=== PATIENT | female | born 1955 ===

== ENCOUNTER → 2016-05-15 | Outpatient (CLI) | payer BC ==
--- NOTE | 2016-05-17 09:02 | MM ---
Reason for exam: screening (asymptomatic). Last mammogram was performed 1 year and 3 months ago. History: Patient is postmenopausal and had first child at age 29. Family history of breast cancer in maternal aunt and breast cancer in maternal grandmother. Taking estrogen for 5 years beginning at age 55. Taking progesterone for 5 years beginning at age 55. Physical Findings: A clinical breast exam by your physician is recommended on an annual basis and results should be correlated with mammographic findings. MG 3D Screening Mammo W/Cad Bilateral CC and MLO view(s) were taken. Prior study comparison: February 24, 2015, bilateral MG screening mammo w CAD. February 18, 2014, bilateral MG screening mammo w CAD. The breast tissue is heterogeneously dense. This may lower the sensitivity of mammography. No significant changes when compared with prior studies. ASSESSMENT: Benign, BI-RAD 2 RECOMMENDATION: Routine screening mammogram of both breasts in 1 year.
== END ==
LOC: RADMAMWWP 13:55
PROVIDERS: ATTEND Obstetrics & Gynecology
DX: Z12.31 Encounter for screening mammogram for malignant neoplasm of breast (principal)
CPT/HCPCS: 77063; G0202

== ENCOUNTER → 2017-06-07 | Outpatient (CLI) | payer BC ==
--- NOTE | 2017-06-11 07:58 | MM ---
Reason for exam: screening (asymptomatic). Last mammogram was performed 1 year and 1 month ago. History: Patient is postmenopausal and had first child at age 29. Family history of breast cancer in maternal aunt and breast cancer in maternal grandmother. Taking estrogen for 5 years beginning at age 55. Taking progesterone for 5 years beginning at age 55. Physical Findings: A clinical breast exam by your physician is recommended on an annual basis and results should be correlated with mammographic findings. MG 3D Screening Mammo W/Cad Bilateral CC and MLO view(s) were taken. Prior study comparison: May 15, 2016, bilateral MG 3d screening mammo w/cad. February 24, 2015, bilateral MG screening mammo w CAD. The breast tissue is heterogeneously dense. This may lower the sensitivity of mammography. No significant changes when compared with prior studies. ASSESSMENT: Benign, BI-RAD 2 RECOMMENDATION: Routine screening mammogram of both breasts in 1 year.
== END | disposition home or self-care (01) ==
LOC: RADMAMWWP 12:49
PROVIDERS: ATTEND Obstetrics & Gynecology
DX: Z12.31 Encounter for screening mammogram for malignant neoplasm of breast (principal)
CPT/HCPCS: 77063; 77067

== ENCOUNTER → 2018-03-25 | Outpatient (CLI) | payer BC ==
--- NOTE | 2018-03-25 16:54 | BD ---
EXAMINATION TYPE: Axial Bone Density DATE OF EXAM: 03/25/2018 COMPARISON: 2014 CLINICAL HISTORY: osteopenia Height: 5'4 1/2 Weight: 128 FRAX RISK QUESTIONS: History of Fracture in Adulthood: y Secondary Osteoporosis: RISK FACTORS HISTORY OF: Postmenopausal woman: y Take estrogen and/or progesterone medications: y How lon-10-years MEDICATIONS: Additional Medications: asthma Additional History: EXAM MEASUREMENTS: Bone mineral densitometry was performed using the [employer] System. Bone mineral density as measured about the Lumbar spine is: ----- L1-L4(G/cm2): 1.180 T Score Values are as follows: ----- L2: -2.2 ----- L3:0.8 ----- L4: 1.9 ----- L1-L4: 0.0 Bone mineral density has: Increased 8.1% since study of: 02/24/2015 Bone mineral density about the R hip (g/cm2): 0.0738 Bone mineral density about the L hip (g/cm2): 0.749 T Score values are as follows: -----R Neck: -2.2 -----L Neck: -2.1 -----R Total: -1.5 -----L Total: -1.3 Bone mineral density has: Decreased -6.1% since study of: 02/24/2015 IMPRESSION: Osteopenia (T Score between -2.5 and -1). There is slightly increased risk of fracture and the patient may be considered for treatment. Re-Screen 2-5 years. NOTE: T-SCORE=SD OF THE YOUNG ADULT MEAN.
== END ==
LOC: RADBDWWP 09:09
PROVIDERS: ATTEND Obstetrics & Gynecology
DX: M85.80 Other specified disorders of bone density and structure, unspecified site (principal)
CPT/HCPCS: 77080

== ENCOUNTER → 2019-01-21 | Outpatient (CLI) | payer BC, MEDICARE ==
--- NOTE | 2019-01-23 14:48 | MM ---
Reason for exam: screening (asymptomatic). Last mammogram was performed 1 year and 7 months ago. History: Patient is postmenopausal and had first child at age 29. Family history of breast cancer in maternal aunt and breast cancer in maternal grandmother. Taking estrogen for 5 years beginning at age 55. Taking progesterone for 5 years beginning at age 55. Physical Findings: A clinical breast exam by your physician is recommended on an annual basis and results should be correlated with mammographic findings. MG 3D Screening Mammo W/Cad Bilateral CC and MLO view(s) were taken. Prior study comparison: June 07, 2017, bilateral MG 3d screening mammo w/cad. May 15, 2016, bilateral MG 3d screening mammo w/cad. The breast tissue is heterogeneously dense. This may lower the sensitivity of mammography. No suspicious abnormality. Chronic right inferior nipple skin retraction, unchanged on MLO from 2014. No significant changes when compared with prior studies. ASSESSMENT: Benign, BI-RAD 2 RECOMMENDATION: Routine screening mammogram of both breasts in 1 year.
== END | disposition home or self-care (01) ==
LOC: RADMAMWWP 09:38
PROVIDERS: ATTEND Obstetrics & Gynecology
DX: Z12.31 Encounter for screening mammogram for malignant neoplasm of breast (principal)
CPT/HCPCS: 77063; 77067

== ENCOUNTER → 2020-02-12 | Outpatient (CLI) | payer MEDICARE ==
--- NOTE | 2020-02-16 08:04 | MM ---
Reason for exam: screening (asymptomatic). Last mammogram was performed 1 year and 1 month ago. History: Patient is postmenopausal and had first child at age 29. Family history of breast cancer in maternal aunt and breast cancer in maternal grandmother. Taking estrogen for 5 years beginning at age 55. Taking progesterone for 5 years beginning at age 55. Physical Findings: A clinical breast exam by your physician is recommended on an annual basis and results should be correlated with mammographic findings. MG 3D Screening Mammo W/Cad Bilateral CC and MLO view(s) were taken. Prior study comparison: January 21, 2019, bilateral MG 3d screening mammo w/cad. June 07, 2017, bilateral MG 3d screening mammo w/cad. The breast tissue is heterogeneously dense. This may lower the sensitivity of mammography. Asymmetric breast tissue right inferior breast, stable. There is no discrete abnormality. ASSESSMENT: Negative, BI-RAD 1 RECOMMENDATION: Routine screening mammogram of both breasts in 1 year. Some consider ultrasound surveillance in patients with benign dense tissue.
== END | disposition home or self-care (01) ==
LOC: RADMAMWWP 09:38
PROVIDERS: ATTEND Student in an Organized Health Care Education/Training Program
DX: Z12.31 Encounter for screening mammogram for malignant neoplasm of breast (principal)
CPT/HCPCS: 77063; 77067

== ENCOUNTER → 2021-01-14 | Outpatient (CLI) | payer MEDICARE ==
--- NOTE | 2021-01-14 08:19 | CT ---
EXAMINATION TYPE: CT brain wo con DATE OF EXAM: 01/14/2021 HISTORY: headaches for [address] DLP: 982.2 mGycm. Automated Exposure Control for Dose Reduction was Utilized. TECHNIQUE: CT scan of the head is performed without contrast. COMPARISON: Sinus CT July 14, 2019. FINDINGS: There is no acute intracranial hemorrhage or midline shift identified. There is mild sulc al prominence consistent with mild bilateral frontal lobe atrophy. No hydrocephalus. Castillo-white bart er differentiation is maintained. Some prominence of the pituitary gland for patient's age but measur es within normal limits. Suprasellar cistern is not effaced. The globes are intact and the visualized sinuses remain clear. IMPRESSION: Symmetric mild diffuse bilateral frontal lobe atrophy. No acute findings are evident.
== END | disposition home or self-care (01) ==
LOC: RADCTMAIN 07:56
PROVIDERS: ATTEND Family Medicine
DX: G31.9 Degenerative disease of nervous system, unspecified (principal)
CPT/HCPCS: 70450

== ENCOUNTER → 2021-03-09 | Outpatient (CLI) | payer MEDICARE ==
--- NOTE | 2021-03-14 11:38 | MM ---
Reason for exam: screening (asymptomatic). Last mammogram was performed 1 year and 1 month ago. History: Patient is postmenopausal and had first child at age 29. Family history of breast cancer in maternal aunt and breast cancer in maternal grandmother. Taking estrogen for 5 years beginning at age 55. Taking progesterone for 5 years beginning at age 55. Physical Findings: A clinical breast exam by your physician is recommended on an annual basis and results should be correlated with mammographic findings. MG 3D Screening Mammo W/Cad Bilateral CC and MLO view(s) were taken. Prior study comparison: February 12, 2020, bilateral MG 3d screening mammo w/cad. January 21, 2019, bilateral MG 3d screening mammo w/cad. The breast tissue is extremely dense which could obscure a lesion on mammography. There are benign appearing round calcifications bilaterally. There is no discrete abnormality. ASSESSMENT: Benign, BI-RAD 2 RECOMMENDATION: Routine screening mammogram of both breasts in 1 year.
== END | disposition home or self-care (01) ==
LOC: RADMAMWWP 16:31
PROVIDERS: ATTEND Student in an Organized Health Care Education/Training Program
DX: Z12.31 Encounter for screening mammogram for malignant neoplasm of breast (principal)
CPT/HCPCS: 77063; 77067

== ENCOUNTER → 2021-06-09 | Outpatient (CLI) | payer MEDICARE ==
[2021-06-09 15:41] LABS: African American GFR (CKD) 67.5 (60.0-200.0); BUN/Creat Ratio 18.8 Ratio (12.00-20.00); Blood Urea Nitrogen 18.8 mg/dL (9.0-27.0); Calcium 9.8 mg/dL (8.7-10.3); Non-African American GFR(CKD) 58.2 (60.0-200.0); Potassium 4.4 mmol/L (3.5-5.5)
== END | disposition home or self-care (01) ==
LOC: LABWHC1 10:19
PROVIDERS: ATTEND Otolaryngology
DX: E87.8 Other disorders of electrolyte and fluid balance, not elsewhere classified (principal)
CPT/HCPCS: 36415; 80048

== ENCOUNTER → 2021-06-21 | Outpatient (CLI) | payer MEDICARE ==
--- NOTE | 2021-06-21 12:05 | MR ---
EXAMINATION TYPE: MR brain and iac wo/w con DATE OF EXAM: 06/21/2021 COMPARISON: CT brain 01/14/2021 HISTORY: Left ear pain, pressure, and hearing loss. Meniere's disease TECHNIQUE: Multiplanar, multisequence images of the brain and brainstem is performed with small [id number] an d high resolution images through the internal auditory canals without and with IV contrast, utilizing 6 mL intravenous Gadavist . FINDINGS: Diffusion weighted images demonstrate no evidence of a recent infarct or other diffusion ab normality. There is no extra-axial fluid collection or significant white matter signal abnormality, possibly 3-5 hyperintensities are present in the left subcortical white matter, axial image 27, right frontal deep white matter, axial image 24, external capsule on the right axial image 17 and inversio n recovery T2-weighted sequences. The ventricular system and cisternal spaces are normal in size and appearance. The brain volume is age appropriate. Cerebellopontine angles show no mass. There is no abnormality of the internal auditory canals to sugg est acoustic neuroma. No coronal images were performed for measurements of saccule and utricle. Midline structures demonstrate normal morphology. The craniocervical junction appears within normal limits. Post contrast images demonstrate no abnormal enhancement. The dural venous sinuses appear pa tent. The visualized sinuses are remarkable for mucosal disease in the ethmoid air cells, and the adriana bes are intact. There is some fluid signal in the mastoid air cells on the left. IMPRESSION: No evident acoustic neuroma. Nonspecific white matter demyelination. There is some fluid signal involving the mastoid air cells on the left
== END | disposition home or self-care (01) ==
LOC: RADMRIMAIN 08:43
PROVIDERS: ATTEND Otolaryngology
DX: G37.9 Demyelinating disease of central nervous system, unspecified (principal); D49.6 Neoplasm of unspecified behavior of brain; D33.3 Benign neoplasm of cranial nerves
CPT/HCPCS: 70553; A9585

== ENCOUNTER → 2021-07-01 | Outpatient (CLI) | payer MEDICARE ==
--- NOTE | 2021-07-01 09:49 | CT ---
EXAMINATION TYPE: CT abdomen pelvis wo con DATE OF EXAM: 07/01/2021 COMPARISON: None HISTORY: 65-year-old female R1 0.9, unspecified abdominal pain, Stomach pains, weight loss CT DLP: 258.7 mGycm. Automated exposure control for dose reduction was used. TECHNIQUE: Contiguous axial scanning of the abdomen and pelvis without IV contrast. Coronal and sagit ronny reconstructions performed. FINDINGS: Heart normal size without pericardial effusion. Tiny punctate calcified granuloma posterior left base . Some strandy atelectasis periphery of the left base. Nonspecific 4 mm peripheral right basilar pulm onary nodule. No pleural effusion. Noncontrast appearance of the liver, gallbladder, adrenal glands, left kidney, spleen, and pancreas s how no gross abnormality. Nonspecific 7 mm cortical nodularity lower pole of the right kidney too small for accurate CT charact erization, likely cyst. No dilated small bowel, free fluid, or free air. No mesenteric or retroperitoneal lymphadenopathy. Normal caliber appendix. Scattered colonic diverticulosis. Mild scattered stool. No pericolonic infla mmatory change. Some minimal residual scattered hyperdense material within the colon suggests prior oral contrast adm inistration. Clinically correlate. There is soft tissue fullness in the lower ascending colon just ab ove the ileocecal valve region, axial image 107 and coronal image 15. This may relate to nondistentio n. Bladder nondistended. Uterus anteverted but retroflexed. Both ovaries are visualized. No abnormal flu id collection in the pelvis or pelvic lymphadenopathy. Bones: Moderate to advanced degenerative disc disease mid to lower lumbar spine. Grade 1 retrolisthes is L2-L3 secondary to facet arthropathy. IMPRESSION: 1. Soft tissue fullness in the lower ascending colon just above the ileocecal valve region could rel ate to nondistention. Correlate with fecal occult blood testing and direct visualization to exclude n eoplasm. 2. Some minimal scattered hyperdense material within the colon suggests previous oral contrast admin istration. Clinically correlate. 3. Generalized colonic diverticulosis. No evidence for acute diverticulitis. 4. Nonspecific 4 mm right lower lobe pulmonary nodule. Three-month follow-up CT chest recommended to reassess this and also to survey the remainder of the lungs.
== END | disposition home or self-care (01) ==
LOC: RADCTMAIN 08:51
PROVIDERS: ATTEND Family Medicine
DX: K57.30 Diverticulosis of large intestine without perforation or abscess without bleeding (principal); R91.1 Solitary pulmonary nodule
CPT/HCPCS: 74176

== ENCOUNTER → 2021-08-09 | Day surgery (SDC) | payer MEDICARE ==
[2021-08-05 09:22] VITALS: BMI 20.7
[~2021-08-09] MED LIST: LACTATED RINGERS 1,000 ML IV SCH; LIDOCAINE 1% (10MG/ML) FOR IV START INTRADERMA PRN; LIDOCAINE 2% INJ 20 MG/ML (2 ML VIAL) ONE; PROPOFOL 10 MG/ML 20 ML VIAL IV ONE
[2021-08-09 07:18] VITALS: TEMP 98.7
--- NOTE | 2021-08-09 08:09 | P.PCN ---
Date of Procedure: 08/09/21 Procedure(s) Performed: Brief history: Patient is a pleasant 66-year-old white female scheduled for an elective upper endoscopy as well as colonoscopy as a part of evaluation of long-standing history of GERD/anemia and abnormal CAT scan showing thickening of the colon. Procedure performed: Esophagogastroduodenoscopy with biopsy Colonoscopy Preoperative diagnosis: GERD/anemia Abnormal CAT scan showing thickening of the ascending colon Anesthesia: [facility] [place] Procedure: After informed consent was obtained from the patient was brought into the endoscopy unit and IV sedation was administered by anesthesia under continuous monitoring. Initially upper endoscopy was done. The Olympus GF 160 video endoscope was inserted inserted into the mouth and esophagus intubated without any difficulty and was gradually advanced into the stomach and duodenum and carefully examined. The bulb and second part of the duodenum appeared normal. Abscesses were done from the duodenum to rule out celiac disease. The scope was then withdrawn into the stomach adequately insufflated with air and upon careful examination the antrum and body, cardia and fundus appeared normal. The scope was then withdrawn into the esophagus. The GE junction was located at 40 cm to the incisors. It appeared regular with no erythema erosions or ulcerations. Rest of the esophagus appeared normal. Patient tolerated the procedure well. At this time the patient continued to remain sedation. Initial digital rectal examination was normal. Olympus CF 160 video colonoscope was then inserted into the rectum and gradually advanced to the cecum without any difficulty. Careful examination was performed as the scope was gradually being withdrawn. The prep was excellent. The cecum, ascending colon, transverse colon, descending colon, sigmoid colon and rectum appeared normal. Scattered right-sided diverticulosis seen. Retroflexion was performed in the rectum and no lesions were noted. Patient tolerated the procedure well. Impression: 1. Upper endoscopy was normal with no evidence of esophagitis or peptic ulcer disease 2. Colonoscopy revealed scattered diverticula but no evidence of colorectal neoplasia Recommendations: Findings of this examination were discussed with the patient as well as her family. She was advised to follow with the biopsy results. She can have a repeat screening colonoscopy in 10 years.
[2021-08-09 08:24] VITALS: BP 115/77; PULSE 78; RESP 16
== END | disposition home or self-care (01) ==
LOC: ORWHC2ENDO 06:42
PROVIDERS: ATTEND Internal Medicine Gastroenterology
DX: K21.9 Gastro-esophageal reflux disease without esophagitis (principal); K29.00 Acute gastritis without bleeding; D64.9 Anemia, unspecified
CPT/HCPCS: 45378; 43239; 88305; J2704; J2001

== ENCOUNTER → 2021-08-15 | Outpatient (CLI) | payer MEDICARE ==
[2021-08-15 18:14] LABS: Basophils # (A) 0.04 X 10*3/uL (0.00-0.10); Basophils % (A) 0.5 %; Eosinophils # (A) 0.24 X 10*3/uL (0.04-0.35); Eosinophils % (A) 3.2 %; HCT 34.5 % (37.2-46.3); HGB 10.8 g/dL (12.0-15.0); Immature Grans, Automated 0.5 %; Lymphocytes # (A) 2.58 X 10*3/uL (0.90-5.00); Lymphocytes % (A) 34.6 %; MCH 28.9 pg (27.0-32.0); MCHC 31.3 g/dL (32.0-37.0); MCV 92.2 fL (80.0-97.0); Mean Platelet Volume 12.1 fL (9.5-12.2); Monocytes # (A) 0.57 X 10*3/uL (0.20-1.00); Monocytes % (A) 7.6 %; NRBC Per 100 WBC 0 /100 WBCS (0.0-0.0); Neutrophils # (A) 3.99 X 10*3/uL (1.80-7.70); Neutrophils % (A) 53.6 %; Platelet Count 227 X 10*3/uL (140-440); RBC 3.74 X 10*6/uL (4.10-5.20); RDW 13.2 % (11.5-14.5); WBC 7.46 X 10*3/uL (4.50-10.00)
[2021-08-15 18:37] LABS: % Iron Saturation 22.56 (12.00-45.00); Albumin 4.3 g/dL (3.8-4.9); Albumin/Globulin Ratio 1.32 (1.60-3.17); Anion Gap 14.3 mmol/L (10.00-18.00); BUN/Creat Ratio 27.73 Ratio (12.00-20.00); Blood Urea Nitrogen 27.4 mg/dL (9.0-27.0); Calcium 10.2 mg/dL (8.7-10.3); Carbon Dioxide 25.3 mmol/L (20.0-27.5); Globulin 3.2 g/dL (1.6-3.3); Non-African American GFR(CKD) 58.7 (60.0-200.0); Potassium 3.3 mmol/L (3.5-5.5); Total Bilirubin 0.4 mg/dL (0.30-1.20); Total Protein 7.5 g/dL (6.2-8.2)
[2021-08-15 18:48] LABS: Erythrocyte Sedimentation Rate 14 mm/Hr (0-30)
== END | disposition home or self-care (01) ==
LOC: LABWHC1 11:09
PROVIDERS: ATTEND Family Medicine
DX: D64.9 Anemia, unspecified (principal); R70.0 Elevated erythrocyte sedimentation rate
CPT/HCPCS: 36415; 80053; 82607; 82728; 82746; 83540; 83550; 85025; 85652; 86038

== ENCOUNTER → 2021-09-28 | Outpatient (CLI) | payer MEDICARE ==
--- NOTE | 2021-09-28 11:17 | CT ---
EXAMINATION TYPE: CT chest wo con DATE OF EXAM: 09/28/2021 INDICATION: Solitary lung nodule CT DLP: 119.6 mGy.cm Automated Exposure Control for Dose Reduction was Utilized. TECHNIQUE AND CONTRAST: CT scan of the chest without IV contrast administration. COMPARISON: CT dated 07/01/2021 FINDINGS: Stable 3 mm faint nodule in the right lung base as compared to the previous CT abdomen. Left basal li near pulmonary atelectasis. Bilateral apical pulmonary changes. Patent trachea and main bronchi. No p leural or pericardial effusion. Left ventricular enlargement, please correlate with echocardiographic results. Scattered arterial ath erosclerotic calcifications. No pathologically enlarged lymph nodes in the chest. Unremarkable upper abdomen. No aggressive bone lesion. IMPRESSION: Stable 3 mm right basal faint pulmonary nodule since June 2021 [address] scan. If high-risk patient, option al follow-up CT scan by June 2022 can be considered. Other incidental findings as described above.
== END | disposition home or self-care (01) ==
LOC: RADCTMAIN 09:57
PROVIDERS: ATTEND Family Medicine
DX: R91.1 Solitary pulmonary nodule (principal)
CPT/HCPCS: 71250

== ENCOUNTER → 2021-09-28 | Outpatient (CLI) | payer MEDICARE ==
[2021-09-28 16:26] LABS: Appearance,Urine Clear (Clear); Bilirubin,Urine Negative (Negative); Blood,Urine Negative (Negative); Color,Urine Yellow (Yellow); Ketones,Urine Negative (Negative); Nitrite,Urine Negative (Negative); PH, Urine 6.5 (5.0-8.0); Specific Gravity,Urine 1.005 (1.001-1.030); Urobilinogen,Urine 0.2 (0.2,1.0)
[2021-09-28 16:31] LABS: Bacteria,Urine 1+ /HPF (None Seen)
[2021-09-28 18:08] LABS: Basophils # (A) 0.04 X 10*3/uL (0.00-0.10); Basophils % (A) 0.6 %; Eosinophils # (A) 0.15 X 10*3/uL (0.04-0.35); Eosinophils % (A) 2.2 %; HCT 37.8 % (37.2-46.3); HGB 12.1 g/dL (12.0-15.0); Immature Grans, Automated 0.4 %; Lymphocytes # (A) 2.13 X 10*3/uL (0.90-5.00); Lymphocytes % (A) 31.6 %; MCH 29.2 pg (27.0-32.0); MCV 91.1 fL (80.0-97.0); Mean Platelet Volume 12.1 fL (9.5-12.2); Monocytes # (A) 0.49 X 10*3/uL (0.20-1.00); Monocytes % (A) 7.3 %; NRBC Per 100 WBC 0 /100 WBCS (0.0-0.0); Neutrophils # (A) 3.91 X 10*3/uL (1.80-7.70); Neutrophils % (A) 57.9 %; Platelet Count 243 X 10*3/uL (140-440); RBC 4.15 X 10*6/uL (4.10-5.20); RDW 12.9 % (11.5-14.5); WBC 6.75 X 10*3/uL (4.50-10.00)
[2021-09-28 18:20] LABS: % Iron Saturation 18.7 (12.00-45.00); African American GFR (CKD) 71.1 (60.0-200.0); Albumin 4.4 g/dL (3.8-4.9); Albumin/Globulin Ratio 1.44 (1.60-3.17); Anion Gap 16.4 mmol/L (10.00-18.00); BUN/Creat Ratio 23.82 Ratio (12.00-20.00); Blood Urea Nitrogen 22.7 mg/dL (9.0-27.0); Calcium 9.9 mg/dL (8.7-10.3); Carbon Dioxide 29.5 mmol/L (20.0-27.5); Globulin 3.1 g/dL (1.6-3.3); Non-African American GFR(CKD) 61.3 (60.0-200.0); Phosphorus 3.2 mg/dL (2.4-5.1); Potassium 3.4 mmol/L (3.5-5.5); Total Bilirubin 0.4 mg/dL (0.30-1.20); Total Protein 7.5 g/dL (6.2-8.2)
== END | disposition home or self-care (01) ==
LOC: LABWHC1 10:18
PROVIDERS: ATTEND Family Medicine
DX: D63.8 Anemia in other chronic diseases classified elsewhere (principal); N18.9 Chronic kidney disease, unspecified
CPT/HCPCS: 36415; 80053; 81001; 82607; 82728; 82746; 83540; 83550; 83970; 84100; 85025

== ENCOUNTER → 2022-03-14 | Outpatient (CLI) | payer MEDICARE ==
--- NOTE | 2022-03-14 18:16 | BD ---
EXAMINATION TYPE: Axial Bone Density DATE OF EXAM: 03/14/2022 COMPARISON: 03/25/2018 CLINICAL HISTORY: 66 yearsold Female. ICD-10 CODE: M85.80 OSTEOPENIA Height: 64 Weight: 124 FRAX RISK QUESTIONS: Family History (Parent hip fracture): NO History of Fracture in Adulthood: YES ANKLE Secondary Osteoporosis: NO Rheumatoid Arthritis: NO RISK FACTORS HISTORY OF: Family History of Osteoporosis: NO Active: YES Diet low in dairy products/other sources of calcium: NO Postmenopausal woman: YES Lost more than 2 inches in height since high school: NO MEDICATIONS: Osteoporosis Medications: YES Which medication: Fosamax How Lon+ Additional Medications: YES ASTHMA MEDS , ALLERGY MEDS, VIT D, CALCIUM EXAM MEASUREMENTS: Bone mineral densitometry was performed using the [employer] System. Bone mineral density as measured about the Lumbar spine is: ----- L1-L4(G/cm2): 1.155 T Score Values are as follows: ----- L1: -2.5 ----- L2: -2.4 ----- L3: 0.9 ----- L4: 2.3 ----- L1-L4: -0.2 Bone mineral density has: Decreased -2.1% since study of: 03/25/2018 Bone mineral density about the R hip (g/cm2): 0.800 Bone mineral density about the L hip (g/cm2): 0.822 T Score values are as follows: -----R Neck: -2.1 -----L Neck: -2.2 -----R Total: -1.6 -----L Total: -1.5 Bone mineral density has: Decreased -1.9% since study of: FRAX%s: The graph provided illustrates a 8.7% chance for a major osteoporotic fx and a 2.7% chance fo r the hips probability for fx in 10 years time. IMPRESSION: Osteopenia (T Score between -2.5 and -1). There is slightly increased risk of fracture and the patient may be considered for treatment. Re-Screen 2-5 years. NOTE: T-SCORE=SD OF THE YOUNG ADULT MEAN.
--- NOTE | 2022-03-15 08:38 | MM ---
Reason for Exam: Screening (asymptomatic). Last screening mammogram was performed 12 month(s) ago. Patient History: Menarche at age 11. First Full-Term at age 29. Late child-bearing (after 30). Postmenopausal. Patient has history of breast feeding. Currently using Estrogen, beginning at age 55 for 5 years. Currently using Progesterone, beginning at age 55 for 5 years. Maternal grandmother had breast cancer. Maternal aunt had breast cancer. Risk Values: Evangelina 5 year model risk: 2.4%. NCI Lifetime model risk: 7.6%. Prior Study Comparison: 05/15/2016 Bilateral Screening Mammogram, [facility]. 06/07/2017 Bilateral Screening Mammogram, [facility]. 01/21/2019 Bilateral Screening Mammogram, [facility]. 02/12/2020 Bilateral Screening Mammogram, [facility]. 03/09/2021 Bilateral Screening Mammogram, [facility]. Tissue Density: The breast tissue is heterogeneously dense. This may lower the sensitivity of mammography. Findings: Analyzed By CAD. There is no suspicious group of microcalcifications or new suspicious mass in either breast. Overall Assessment: Benign, BI-RAD 2 Management: Screening Mammogram of both breasts in 1 year. A clinical breast exam by your physician is recommended on an annual basis and results should be correlated with mammographic findings. Electronically signed and approved by: Aaron Warren M.D. Radiologis
== END | disposition home or self-care (01) ==
LOC: RADMAMWWP 10:15
PROVIDERS: ATTEND Student in an Organized Health Care Education/Training Program
DX: Z12.31 Encounter for screening mammogram for malignant neoplasm of breast (principal); M81.0 Age-related osteoporosis without current pathological fracture; M85.89 Other specified disorders of bone density and structure, multiple sites; Z78.0 Asymptomatic menopausal state; Z80.3 Family history of malignant neoplasm of breast
CPT/HCPCS: 77063; 77067; 77080

== ENCOUNTER → 2022-06-28 | Outpatient (CLI) | payer MEDICARE ==
--- NOTE | 2022-06-28 07:57 | CT ---
EXAMINATION TYPE: CT chest wo con DATE OF EXAM: 06/28/2022 COMPARISON: Chest CT September 28, 2021 HISTORY: Follow up for lung nodule. CT DLP: 117 mGycm. Automated Exposure Control for Dose Reduction was Utilized. TECHNIQUE: CT scan of the thorax is performed without IV contrast. FINDINGS: LUNGS: Stable 3 mm groundglass nodule in the peripheral right lower lobe axial image 43. Stable mild left basilar linear scarring. Stable mild biapical pleural/parenchymal scarring. No new greater than 5 mm pulmonary nodules. There is no pleural effusion or pneumothorax seen. The tracheobronchial tree is patent. MEDIASTINUM: Lack of IV contrast is noted to limit evaluation for mediastinal and especially hilar ad enopathy. There are no definitive greater than 1 cm mediastinal lymph nodes. No cardiomegaly or per icardial effusion is seen. OTHER: No additional significant abnormality is seen. IMPRESSION: Stable 3 mm peripheral right lower lobe groundglass nodule. No new or enlarging greater t hassan 5 mm pulmonary nodules. No significant change from prior CT.
--- NOTE | 2022-06-28 08:43 | US ---
EXAMINATION TYPE: US thyroid st tissue head/neck DATE OF EXAM: 06/28/2022 COMPARISON: NONE CLINICAL HISTORY: 66-year-old female E07.9 Disorder of thyroid. Disorder of thyroid. Patient states h er doctor felt her thyroid was enlarged. GLAND SIZE: Right Lobe: 4.8 x 1.5 x 1.1 cm Overall Parenchyma: homogenous Left Lobe: 4.0 x 1.3 x 0.9 cm Overall Parenchyma: homogeneous Isthmus Thickness: 0.2 cm NODULES RIGHT: # of nodules measured on right: 0 LEFT: # of nodules measured on left: 0 ISTHMUS: # of nodules measured in the isthmus: 0 Bilateral neck scanned, no evidence of lymphadenopathy. IMPRESSION: Unremarkable thyroid ultrasound. No discrete nodules.
== END | disposition home or self-care (01) ==
LOC: RADCTMAIN 07:03
PROVIDERS: ATTEND Family Medicine
DX: E07.9 Disorder of thyroid, unspecified (principal); R91.1 Solitary pulmonary nodule
CPT/HCPCS: 71250; 76536

== ENCOUNTER → 2023-04-25 | Outpatient (CLI) | payer MEDICARE ==
--- NOTE | 2023-04-29 15:22 | MM ---
Reason for Exam: Screening (asymptomatic). Last mammogram was performed 1 year(s) and 2 month(s) ago. Patient History: Menarche at age 11. First Full-Term at age 29. Late child-bearing (after 30). Postmenopausal. Patient has history of breast feeding. Estrogen, starting at age 55 for 5 years. Progesterone, starting at age 55 for 5 years. Maternal grandmother had breast cancer. Maternal aunt had breast cancer. Risk Values: Evangelina 5 year model risk: 2.4%. NCI Lifetime model risk: 7.3%. Prior Study Comparison: 05/15/2016 Bilateral Screening Mammogram, [facility]. 06/07/2017 Bilateral Screening Mammogram, [facility]. 01/21/2019 Bilateral Screening Mammogram, [facility]. 02/12/2020 Bilateral Screening Mammogram, [facility]. 03/09/2021 Bilateral Screening Mammogram, [facility]. 03/14/2022 Bilateral MG 3D screening mammo w/cad, [facility]. Tissue Density: The breast tissue is heterogeneously dense. This may lower the sensitivity of mammography. Findings: Analyzed By CAD. The pattern is symmetrical and stable. No significant interval changes. No suspicious groups of microcalcifications, spiculated or lobular masses, architectural distortion or other secondary signs of malignancy are mammographically apparent. Overall Assessment: Benign, BI-RAD 2 Management: Screening Mammogram of both breasts in 1 year. A negative mammogram report should not preclude additional follow up of suspicious palpable abnormalities. Patient should continue monthly self breast exam. A clinical breast exam by your physician is recommended on an annual basis and results should be correlated with mammographic findings. Electronically signed and approved by: Familia Romero D.O. Radiologis
== END | disposition home or self-care (01) ==
LOC: RADMAMWWP 13:12
PROVIDERS: ATTEND Student in an Organized Health Care Education/Training Program
DX: Z12.31 Encounter for screening mammogram for malignant neoplasm of breast (principal); Z80.3 Family history of malignant neoplasm of breast; Z78.0 Asymptomatic menopausal state
CPT/HCPCS: 77063; 77067

== ENCOUNTER → 2023-08-09 | Outpatient (CLI) | payer MEDICARE ==
[2023-08-09] MEDS: DENOSUMAB 60 MG/ML 1 ML SYRINGE SQ NR (14:50)
[2023-08-09 15:29] VITALS: BP 121/75; PULSE 77; RESP 15; TEMP 97.6
== END ==
LOC: PROCWHC3 14:32
PROVIDERS: ATTEND Physician Assistant
DX: M81.0 Age-related osteoporosis without current pathological fracture (principal)
CPT/HCPCS: 96372; J0897

== ENCOUNTER → 2024-02-11 | Outpatient (CLI) | payer MEDICARE ==
[2024-02-11] MEDS: DENOSUMAB 60 MG/ML 1 ML SYRINGE SQ NR (14:10)
[2024-02-11 14:22] VITALS: BP 115/67; PULSE 79; RESP 16; TEMP 98
== END ==
LOC: PROCWHC3 14:01
PROVIDERS: ATTEND Physician Assistant
DX: M81.0 Age-related osteoporosis without current pathological fracture (principal)
CPT/HCPCS: 96372

== ENCOUNTER → 2024-08-20 | Outpatient (CLI) | payer MEDICARE ==
[2024-08-20] MEDS: DENOSUMAB 60 MG/ML 1 ML SYRINGE SQ NR (14:00)
[2024-08-20 14:11] VITALS: BP 124/75; PULSE 80; RESP 16; TEMP 97.6
== END ==
LOC: PROCWHC3 13:50
PROVIDERS: ATTEND Physician Assistant
DX: M81.0 Age-related osteoporosis without current pathological fracture (principal)
CPT/HCPCS: 96372; J0897